=== PATIENT | female | born 1935 | race Caucasian/White ===

== ENCOUNTER → 2017-04-05 | Day surgery (SDC) | payer OTHER, MEDICARE ==
[~2017-04-05] VITALS: Ht 147.3 cm; Wt 55.8 kg
--- NOTE | 2017-04-05 10:20 | Operative Report ---
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 The patient has hardware placed many years prior and has a chronic open wound likely pressure cannot rule out involvement of the hardware. We discussed about making the wound larger on the outside sampling of the bone and partial closure deep down if possible. Informed consent was signed to the exploration request. She was brought to the operative placed lateral on the beanbag. Intravenous sedation was given. The back was prepped and draped in usual sterile fashion. A full-thickness excision through the skin was carried out in the segment of skin was excised to allow dressing changes to be performed. Deeper or methylene blue which was placed in the in's wound prior to incision was excised sharply. At this depth of the wound there was exposed cortical bone. This was debrided back until firm. No purulent collections were identified. There was no tracking down to hardware. After debridement of the bone incisions were made in the muscle fascia and it was advanced on both sides and closed to cover the cortical bone defects. Additional soft tissues layers were then closed. The skin was left open and hopefully this will provide a solid vascularized based to cover the exposed cortical bone with dressing changes to her in the surface defect of full- thickness skin.
== END ==
LOC: STS 01:03
DX: M46.24 Osteomyelitis of vertebra, thoracic region (principal); L89.104 Pressure ulcer of unspecified part of back, stage 4; I10 Essential (primary) hypertension; F03.90 Unspecified dementia, unspecified severity, without behavioral disturbance, psychotic disturbance, mood disturbance, and anxiety; M19.90 Unspecified osteoarthritis, unspecified site
CPT/HCPCS: 87070; 87075; 88307; J2250; Q9968